=== PATIENT | female | born 1945 | race African-American/Black ===

== ENCOUNTER → 2017-06-28 | Outpatient (CLI) | payer OTHER ==
[~2017-06-28] VITALS: Ht 162.6 cm; Wt 122.5 kg
[~2017-06-28] MED LIST: ASPIR 8181 MG PO; CRESTOR40 MG PO; FENOFIBRATE160 MG PO; FOSAMAX5 MG; GLIPIZIDE ER2.5 MG; LISINOPRIL2.5 MG PO; LOSARTAN-HCTZ1 EAC2 PO; MOBIC15 MG PO; MOBIC7.5 MG PO; NORCO 5-325 TA1 EACH PO; NORVASC5 MG PO; PROTONIX40 M2; SIMVASTATIN5 MG; UNKNOWN BP MED; VITAMIN D5000 UNIT PO
--- NOTE | ~2017-06-28 | P ---
[facility] [place] [address] PROCEDURE REPORT Name: RAHEEMANA M Room #: REG [facility]#: [id number] Admission: 06/28/17 Attend Phys: Jt Humphreys MD Discharge: Date of : 47 Report #: [id number] THIS REPORT FOR: //name// CC: Jt Otero BRIEF HISTORY: The patient is a 72-year-old woman for average risk screening colonoscopy. Last colonoscopy is more than 10 years ago. PREOPERATIVE DIAGNOSIS: Average risk screening colonoscopy. POSTOPERATIVE DIAGNOSES: 1. A 5 mm rectal polyp. 2. Moderate sigmoid diverticulosis coli. MEDICATIONS: Deep sedation with propofol per anesthesia. SPECIMEN: Rectal polyp. ESTIMATED BLOOD LOSS: 3 mL. PROCEDURE: Colonoscopy to cecum and terminal ileum with biopsy. FINDINGS: Prior to propofol sedation, procedure of colonoscopy discussed with the patient as well as potential risks and its complications. She indicates she understands and desires to proceed. DESCRIPTION OF PROCEDURE: With the patient in left lateral decubitus position, digital examination was completed which revealed no abnormalities. Subsequently, the [employer] video colonoscope was introduced into the rectum and advanced under direct vision to the cecum. Done with minimal difficulty. The cecum was identified by the ileocecal valve and appendiceal orifice. I was able to visualize the distal segment of terminal ileum, which was inspected and noted to be unremarkable. At that point, scope was withdrawn and careful circumferential views obtained including retroflexion of the scope in the ascending colon. The scope was withdrawn. The mucosa was inspected. Mucosa was within normal limits. Normal vascular pattern and normal light reflex. The prep was good. As the scope was withdrawn, the mucosa was within normal limits, normal vascular pattern and normal light reflex. No abnormalities were noted until the sigmoid colon was reached at which point she was noted to have moderate diverticula without endoscopic evidence of diverticulitis. Scope was withdrawn in the rectum and no abnormalities were noted until the scope was retroflexed and a 5 mm sessile polyp was seen in the distal rectum just above the anal verge. No other abnormalities were seen. The polyp was removed with biopsy forceps. Scope was withdrawn. The patient tolerated the procedure well. [facility] [address] [place] [address] PROCEDURE REPORT Name: ANA MACIEL Room #: REG [facility]#: [id number] Admission: 06/28/17 Attend Phys: Jt Humphreys MD Discharge: Date of : 47 Report #: [id number] CONDITION OF THE PATIENT UPON DISCHARGE: Following procedure, the patient drowsy, aroused, conversant and will be discharged home when fully ambulatory. INSTRUCTIONS TO THE PATIENT AND FAMILY AT THE TIME OF DISCHARGE: One small polyp identified and removed as described above. We will follow up on the path and make further recommendations. If this is an adenoma, she should return in 5 years. If it is hyperplastic, then 10 years would be indicated. <ELECTRONICALLY SIGNED> By: Jt Humphreys MD 07/01/17 1712 1047 1443 Jt Humphreys MD /nt
--- NOTE | ~2017-06-28 | S ---
[facility] [address] [place] [address] SURGICAL PATH RPT PROCEDURE Name: ANA MACIEL Room #: REG [facility] M.R.#: [id number] Admission: 06/28/17 Date of : 47 Discharge: Report #: [id number] Path Case #: [id number] PATHOLOGY REPORT DRAFT COLLECTION DATE: 06/28/2017 RECEIVED DATE: 06/28/2017 SPECIMEN(S) RECEIVED: A.Rectal polyp bx
== END ==
LOC: GI 08:41
DX: Z12.11 Encounter for screening for malignant neoplasm of colon (principal); K62.1 Rectal polyp; K57.30 Diverticulosis of large intestine without perforation or abscess without bleeding; K21.9 Gastro-esophageal reflux disease without esophagitis; E11.9 Type 2 diabetes mellitus without complications; I10 Essential (primary) hypertension; E78.00 Pure hypercholesterolemia, unspecified; J45.909 Unspecified asthma, uncomplicated; M19.90 Unspecified osteoarthritis, unspecified site; E78.5 Hyperlipidemia, unspecified; F17.210 Nicotine dependence, cigarettes, uncomplicated; Z98.890 Other specified postprocedural states; Z86.73 Personal history of transient ischemic attack (TIA), and cerebral infarction without residual deficits; Z98.41 Cataract extraction status, right eye; Z98.42 Cataract extraction status, left eye; Z79.899 Other long term (current) drug therapy; Z88.8 Allergy status to other drugs, medicaments and biological substances
CPT/HCPCS: 62110; 62900

== ENCOUNTER → 2017-10-09 | Outpatient (CLI) | payer OTHER ==
--- NOTE | ~2017-10-09 | 2DMMODE ---
[facility] [place] [address] 2 D/M-MODE ECHOCARDIOGRAM Name: RAHEEMANA WYATT Room #: REG [facility].#: [id number] Admission: 10/09/17 Attend Phys: Momo Willard MD Discharge: Date of : 47 Date of Service: 10/09/17 1249 Report #: [id number] THIS REPORT FOR: //name// APPROVED REPORT Study performed: 10/09/2017 11:29:40 EXAM: Comprehensive 2D, Doppler, and color-flow Echocardiogram Patient Location: Out-Patient Status: routine BSA: 2.23 HR: 65 bpm BP: 140/86 mmHg Rhythm: NSR/PVCs Other Information Study Quality: Good Indications PVC's, pre-op knee replacement. Hx: HTN, HLP, DM, morbid obesity. 2D Dimensions RVDd: 36.70 mm LVEF(%): 49.40 (>50%) IVSd: 12.50 (7-11mm) LVOT Diam: 20.30 (18-24mm) LVDd: 52.92 mm PWd: 11.41 (7-11mm) Ascending Ao: 35.81 (22-36mm) LVDs: 39.58 (25-40mm) Aortic Root: 30.48 mm Ruiz's LVEF: 49.40 % Volumes Left Atrial Volume (Systole) Single Plane 4CH: 65.10 mL Single Plane 2CH: 83.02 mL LA ESV Index: 36.00 mL/m2 Aortic Valve AoV Peak Donald.: 1.40 m/s AO Peak Gr.: 7.79 mmHg LVOT Max P.23 mmHg LVOT Max V: 0.90 m/s RUDDY Vmax: 2.08 cm2 Mitral Valve E/A Ratio: 0.7 MV Decel. Time: 194.54 ms [facility] [place] [address] 2 D/M-MODE ECHOCARDIOGRAM Name: ANA MACIEL Room #: REG [facility]#: [id number] Admission: 10/09/17 Attend Phys: Momo Willard MD Discharge: Date of : 47 Date of Service: 10/09/17 1249 Report #: [id number] E Max Donald.: 0.77 m/s MV A Donald.: 1.18 m/s MV PHT: 56.42 ms IVRT: 119.95 ms Pulmonary Valve PV Peak Donald.: 0.92 m/s PV Peak Gr.: 3.40 mmHg Pulmonary Vein P Vein S: 0.52 m/s P Vein A: 0.25 m/s P Vein D: 0.38 m/s P Vein A Dur.: 133.8 msec P Vein S/D Ratio: 1.37 Tricuspid Valve TR Peak Donald.: 3.45 m/s RAP Estimate: 5.00 mmHg TR Peak Gr.: 47.51 mmHg PA Pressure: 53.00 mmHg Left Ventricle The left ventricle is normal size. There is normal LV segmental wall motion. Mild concentric left ventricular hypertrophy. Left ventricular systolic function is low normal. LVEF is 50%. Mild diastolic dysfunction is present (impaired relaxation pattern). Right Ventricle The right ventricle is normal size. The right ventricular systolic function is normal. Atria Left atrium is mildly dilated. The right atrium size is normal. Aortic Valve The aortic valve is normal in structure. No aortic regurgitation is present. There is no aortic valvular stenosis. Mitral Valve The mitral valve is normal in structure. Mild mitral regurgitation. No evidence of mitral valve stenosis. Tricuspid Valve The tricuspid valve is normal in structure. Mild tricuspid regurgitation. estimated pa pressure 50 mm Hg Pulmonic Valve [facility] [address] [place] [address] 2 D/M-MODE ECHOCARDIOGRAM Name: ANA MACIEL Room #: REG CL [facility]#: [id number] Admission: 10/09/17 Attend Phys: Momo Willard MD Discharge: Date of : 47 Date of Service: 10/09/17 1249 Report #: [id number] The pulmonary valve is normal in structure. Trace pulmonic regurgitation. Great Vessels The aortic root is normal in size. The ascending aorta is normal in size. IVC is normal in size and collapses >50% with inspiration. Pericardium There is no pericardial effusion. <Conclusion> Mild concentric left ventricular hypertrophy. LVEF is 50%. Left atrium is mildly dilated. Mild tricuspid regurgitation. estimated pa pressure 50 mm Hg <ELECTRONICALLY SIGNED> By: Momo Willard MD, FACC 10/09/17 1249 1249 1249 Momo Willard MD, FACC /INF
== END ==
LOC: CV 06:32
DX: I08.1 Rheumatic disorders of both mitral and tricuspid valves (principal); I10 Essential (primary) hypertension; E11.9 Type 2 diabetes mellitus without complications; E78.5 Hyperlipidemia, unspecified; E66.01 Morbid (severe) obesity due to excess calories; Z96.651 Presence of right artificial knee joint

== ENCOUNTER 2018-06-19 13:02 | Inpatient (IN) | payer OTHER ==
[~2018-06-19] VITALS: Ht 162.6 cm; Wt 123.4 kg
--- NOTE | ~2018-06-19 | HC ---
[facility] [place] [address] CONSULTATION Name: ANA MACIEL Room #: 464-P ADM IN M.R.#: [id number] Admission: 06/19/18 ������������������ Attend Phys: Bassem Taylor Discharge: ������������������ Date of : 47 Report #: [id number] THIS REPORT FOR: //name// CC: Bassem Otero DATE OF SERVICE: 06/20/2018 REQUESTING PHYSICIAN: Dr. Fermin. PRIMARY CARE PHYSICIAN: Dr. Otero. PRIMARY BEAUTY CULTURIST APPRENTICE: Dr. Momo Willard. REASON FOR CONSULTATION: Syncope. HISTORY OF PRESENT ILLNESS: The patient is a 73-year-old female with a history of high blood pressure. She got up yesterday morning and fell down. She was basically getting out of bed when it happened and she transiently lost consciousness. She has a history of PVCs, but did not feel palpitations. She went to the emergency room and was in the sinus rhythm. Overnight on telemetry, she has had a sinus rhythm with intermittent PVCs and rare, less than 5-beat runs of a nonsustained ventricular tachycardia without symptoms. Vital signs have been stable. She denies chest pain, pressure, shortness of breath. She had recent knee surgery. She had been sick with the flu over the last 1-2 weeks and thinks she might not have been eating very well. She denies headaches, blurry vision, symptoms of numbness, weakness or slurred speech. PAST MEDICAL HISTORY: Hypertension and hyperlipidemia. She had a normal heart catheterization. She has had eye surgery; type 2 diabetes mellitus, diet controlled; hyperlipidemia. HOME MEDICATIONS: Include amlodipine 5 mg daily, meloxicam, Crestor 40 mg daily, losartan/HCTZ 100 mg and fenofibrate. ALLERGIES: SHE HAS ALLERGIES TO LISINOPRIL AND FLAGYL. SOCIAL HISTORY: She is a smoker. [facility] [address] [place] [address] CONSULTATION Name: ANA MACIEL Room #: 464-P [facility] [place] ..#: [id number] Admission: 06/19/18 ������������������ Attend Phys: Bassem Taylor Discharge: ������������������ Date of : 47 Report #: [id number] REVIEW OF SYSTEMS: GENERAL: Positive fevers and chills recently. HEENT: Eyes: Denies any blurred vision or loss of vision. Throat: Denies dysphagia. CARDIOVASCULAR: No chest pain, no orthopnea, no PND, no dyspnea with exertion. MUSCULOSKELETAL: Positive knee surgery recently, has knee pain. Walks with a cane. NEUROLOGIC: As noted above. SKIN: No rashes. GASTROINTESTINAL: No active fevers or chills. OBJECTIVE: VITAL SIGNS: This morning her blood pressure is 152/63 and her blood pressure first thing this morning was 77/41. She is in sinus rhythm. GENERAL: This is an obese elderly -[place]cu[place] female. HEENT: Unremarkable. There is no facial trauma. EOMs intact. No exophthalmus. NECK: Supple, no jugular venous distention. CARDIOVASCULAR: Regular. I could not hear a murmur or S3. LUNGS: Clear to auscultation bilaterally. EXTREMITIES: There is no peripheral edema. Carotid Dopplers show fbyy-do-dmcwwzrt plaquing with a 40-60% stenosis at its origin on the left and mild plaquing in the right. Transthoracic echocardiogram last year showed EF 50%, mild concentric left ventricular hypertrophy, mild pulmonary hypertension. IMPRESSION: 1. Syncope. 2. Premature ventricular contractions. 3. Hypertension. 4. Low blood pressures. PLAN: At this point in time, I think she might have become dehydrated and overmedicated in regards to her hypertension medicines and may have some mild orthostasis with the possibility of this being a ventricular arrhythmia. I would like to arrange for a 30-day cardiac monitoring. I would discontinue the thiazide diuretic medication and perhaps decrease the dose of her losartan as well. ��������������������������������������������� ���������������������������������������� By: ��������������������������������������������� 0828 2328 Sterling Nava MD, FACC /nt
[2018-06-19 13:03] VITALS: BP 143/61
[2018-06-19 13:52] LABS: ABSOLUTE NEUTROPHILS 1.5 thou/uL (1.4-8.2); BASOPHILS 0.2 % (0.0-2.0); EOSINOPHILS 10.1 % (0.0-3.0); HEMATOCRIT 41.6 % (37.0-47.0); HEMOGLOBIN 14.1 gm/dL (12.0-15.0); LYMPHOCYTES 43.1 % (24.0-44.0); MCH 29.6 pg (26.0-34.0); MCHC 33.8 g/dL (28.0-37.0); MCV 87.6 fL (80.0-100.0); MONOCYTES 8.9 % (1.0-8.0); PLATELET COUNT 260 thou/uL (150-400); POLYS 37.7 % (36.0-66.0); RBC 4.75 mil/uL (4.20-5.00); RDW 13.7 % (10.5-14.5)
[2018-06-19 14:02] LABS: ANION GAP 8 mmol/L (7-16); BUN 11 mg/dL (7-18); CALCIUM 9.7 mg/dL (8.5-10.1); CHLORIDE 103 mmol/L (98-107); CO2 32 mmol/L (21-32); CREATININE 0.6 mg/dL (0.6-1.0); GLUCOSE 109 mg/dL (74-106); POTASSIUM 4.1 mmol/L (3.5-5.1); SODIUM 143 mmol/L (136-145)
[2018-06-19 14:11] LABS: TROPONIN-I <0.06 ng/mL (<0.06)
[2018-06-19 19:08] VITALS: BP 178/76
[2018-06-19 19:24] VITALS: BP 132/78
[2018-06-19 19:55] VITALS: BP 151/54
[2018-06-20] VITALS (7 sets, daily range): BP systolic 77–182; BP diastolic 41–79
--- NOTE | 2018-06-20 04:40 | NUR ---
Pt. rested quietly at intervals during the night when checked on during frequent rounds. She c/o a headache and was given jpo tylenol (see emar) with some relief noted. Bed alarm is on.
[2018-06-20 04:45] LABS: HEMATOCRIT 38.5 % (37.0-47.0); HEMOGLOBIN 12.8 gm/dL (12.0-15.0); MCH 29.4 pg (26.0-34.0); MCHC 33.1 g/dL (28.0-37.0); MCV 88.8 fL (80.0-100.0); RBC 4.34 mil/uL (4.20-5.00); RDW 13.7 % (10.5-14.5); WBC 4.2 thou/uL (4.0-11.0)
[2018-06-20 05:01] LABS: MAGNESIUM 1.7 mg/dL (1.8-2.4); PHOSPHORUS 4.5 mg/dL (2.5-4.9); TROPONIN-I <0.06 ng/mL (<0.06)
[2018-06-20 05:02] LABS: ALBUMIN 3.2 g/dL (3.4-5.0); CALCIUM 9.3 mg/dL (8.5-10.1); CREATININE 0.5 mg/dL (0.6-1.0); POTASSIUM 3.8 mmol/L (3.5-5.1); TOTAL BILIRUBIN 0.4 mg/dL (<0.1-1.0); TOTAL PROTEIN 6.3 g/dL (6.4-8.2)
--- NOTE | 2018-06-20 12:10 | 2DMMODE ---
[address] [address] 2 D/M-MODE ECHOCARDIOGRAM Name: ANA MACIEL Room #: 464-P ADM IN M.R.#: [id number] ������������� Admission: 06/19/18 ������������� Attend Phys: Bassem Escalona Discharge: ��� ������������� ��� Date of : 47 Date of Service: 06/20/18 1210 �� Report #: [id number] �������� ��������������������������������������������[id number] THIS REPORT FOR: //name// APPROVED REPORT Study performed: 06/20/2018 09:38:17 EXAM: Comprehensive 2D, Doppler, and color-flow Echocardiogram Patient Location: Bedside Room #: 464 Status: routine BSA: 2.23 HR: 87 bpm BP: 151/53 mmHg Other Information Study Quality: Adequate Indications Arrhythmia Syncope Left Ventricle The left ventricle is normal size. There is normal LV segmental wall motion. Mild concentric left ventricular hypertrophy. The left ventricular systolic function is normal. The left ventricular ejection fraction is within the normal range. LVEF is 50-55%. Right Ventricle The right ventricle is normal size. The right ventricular systolic function is normal. Atria Left atrium is dilated. The right atrium size is normal. Aortic Valve The aortic valve is normal in structure. Mitral Valve The mitral valve is normal in structure. Tricuspid Valve The tricuspid valve is normal in structure. Pulmonic Valve [address] [place] [address] 2 D/M-MODE ECHOCARDIOGRAM Name: ANA MACIEL Room #: 464-P ADM IN M.R.#: [id number] ������������� Admission: 06/19/18 ������������� Attend Phys: Bassem Escalona Discharge: ��� ������������� ��� Date of : 47 Date of Service: 06/20/18 1210 �� Report #: [id number] �������� ��������������������������������������������[id number] The pulmonary valve is normal in structure. Great Vessels The aortic root is normal in size. IVC is normal in size and collapses >50% with inspiration. Pericardium There is no pericardial effusion. <Conclusion> LVEF is 50-55%. Mild concentric left ventricular hypertrophy. There is normal LV segmental wall motion. The right ventricle is normal size. Left atrium is dilated. The aortic valve is normal in structure. The mitral valve is normal in structure. ��������������������������������������������� <ELECTRONICALLY SIGNED> ���������������������������������������� By: Sterling Nava MD, FACC ��������������������������������������������� 06/20/180 09 09 Sterling Nava MD, FACC /INF
--- NOTE | 2018-06-20 15:32 | NUR ---
PT ADMITTED RELATED TO [facility]NCOPE. CM REVIEWED CHART AND SPOKE WITH CARE TEAM. CM MET WITH PT AT BEDSIDE THIS DAY. PT IS A&O X4. CM ROLE INTRODUCED. PT INDICATED SHE LIVES IN A HOUSE WITH HER DTR WITH 3 STEPS TO ENTER AND A FULL FLIGHT OF STEPS TO MAIN LEVEL BUT SHE ALSO HAS A STAIR GLIDE. PT INDICATED SHE HAS A CANE AND A FWW FOR USE UPON DC. PT INDICATED SHE HAD USED [facility] IN THE PAST AND SHE WOULD LIKE TO USE THEM AGAIN UPON DC IF NEEDED. CM TO FOLLOW INDICATED WITH DC PLANNING.
--- NOTE | 2018-06-20 15:50 | NUR ---
IF PT IS TO DC OVER THE WEEKEND AND NEED HOME HEALTH PLEASE FAX ORDERS TO [facility] . PT HAS ALL RECOMMENDED DME.
--- NOTE | 2018-06-20 16:01 | NUR ---
DISCHARGE PLANNING. ANTICIPATED DISCHARGE TO HOME TOMORROW. HOME HEALTH RECOMMENDED AT DISCHARGE. PATIENT REQUEST REFERRAL FAXED TO [facility]. REFERRAL FAXED TO [facility]. CALL PLACED TO [facility] TO NOTIFY. [facility] STATES UPON ACCEPTANCE, PATIENT WILL NOT BE HAVE FIRST HOME HEALTH VISIT UNTIL SATURDAY OR SATURDAY OF NEXT WEEK DUE TO PATIENT CENSUS. UNIT SW NOTIFIED. FOLLOWING TO ASSIST WITH DISCHARGE NEEDS.
--- NOTE | 2018-06-20 16:19 | NUR ---
Received awake on bed, alert and oriented. Assisted in ambulating, with cane, on falls protocol. Blood pressure of 77/41 for 8am noted, rechecked: 151/54 (sitting on chair). Doctor Brandon informed, Blood pressure rechecked, 120/70 (lying down). Sayra had ECHO done today. Seen by OT/PT.
[2018-06-21 02:52] VITALS: BP 158/96
--- NOTE | 2018-06-21 04:50 | NUR ---
Pt. rested quietly at intervals during the night when checked on during frequent rounds. She still c/o some dizziness and po antivert given with no relief. Assisted to the bathroom. Bed alarm is on.
[2018-06-21 08:00] VITALS: BP 151/79
[2018-06-21 09:57] VITALS: BP 151/79
[2018-06-21] MEDS ORDERED: COZAAR 50 MG TA50 M1 PO (10:28)
[2018-06-21] MEDS ORDERED: AMLODIPINE BESY10 MG PO (10:28)
--- NOTE | 2018-06-21 13:26 | NUR ---
Received patient awake on bed. Vital signs stable. Assisted in ambulating to the toilet, with cane. Patient complained that she feels lethargic after taking Meclizine, complained of pain at right upper abdomen- Dr. Taylor informed and seen the patient. Patient for discharge today, IV and telemetry leads removed, health teaching given, home medications and follow up schedule given to the patient. Wheeled down to the [facility], patient went home with daughter via personal car.
--- NOTE | 2018-06-21 18:22 | EKG ---
[address] [place] [address] ELECTROCARDIOGRAM REPORT Name: ANA MACIEL Room #: 464-P [facility] IN M.R.#: [id number] ������������������ Admission: 06/19/18 ������������������ Attend Phys: Bassme Taylor Discharge: 06/21/18 ������������������ Date of : 47 Report #: [id number] ����������������������������������������������������������������� [id number] THIS REPORT FOR: //name// [facility] ED Test Date: 2018-06-19 Test Time: 13:42:29 Pat Name: ANA MACIEL Department: Room: [facility] Gender: F Mold Injector: WG : 1945 Requested By: Sreekanth Gallego Order Number: [id number] MD: Amarjit Merrill Measurements Intervals [place] Rate: 87 P: 34 DC: 194 QRS: -13 QRSD: 90 T: 32 QT: 361 QTc: 435 Interpretive Statements Sinus tachycardia Ventricular trigeminy frequent PVCs Left atrial enlargement Low voltage, precordial leads Nonspecific ST-T wave changes Compared to ECG 10/09/2011 21:49:10 Low QRS voltage now present Electronically Signed On 06-21-2018 18:22:03 CDT by Amarjit Merrill [email or web address] ��������������������������������������������� <ELECTRONICALLY SIGNED> ���������������������������������������� By: Amarjit Merrill MD ��������������������������������������������� 06/21/18 1822 1342 134 Amarjit Merrill MD /EPI
--- NOTE | 2018-06-24 10:16 | NUR ---
Donna from [facility] called to see if patient had discharged yet. Patient is to have [facility]. DP called Donna at [facility] and left message that patient dc this past Saturday06/21/18 and if they did not receive dc paperwork to please call dp back and dp will send paperwork on patient.
== END 2018-06-21 13:46 | disposition home health service (06) | DRG 316 ==
LOC: ER 13:02 → EROBS 18:20 → 4W 18:20
PROVIDERS: Nurse Practitioner; ADMIT Hospitalist
DX: I95.9 Hypotension, unspecified (principal); E86.9 Volume depletion, unspecified; R55 Syncope and collapse; I10 Essential (primary) hypertension; E78.5 Hyperlipidemia, unspecified; E11.9 Type 2 diabetes mellitus without complications; I65.23 Occlusion and stenosis of bilateral carotid arteries; I49.3 Ventricular premature depolarization; S00.93XA Contusion of unspecified part of head, initial encounter; W18.39XA Other fall on same level, initial encounter; E86.0 Dehydration; K21.9 Gastro-esophageal reflux disease without esophagitis; M19.90 Unspecified osteoarthritis, unspecified site; J45.909 Unspecified asthma, uncomplicated; Z98.51 Tubal ligation status; Z86.73 Personal history of transient ischemic attack (TIA), and cerebral infarction without residual deficits; Z88.8 Allergy status to other drugs, medicaments and biological substances; Y93.89 Activity, other specified; Y92.89 Other specified places as the place of occurrence of the external cause; Y99.8 Other external cause status
CPT/HCPCS: 10045

== ENCOUNTER 2020-07-12 16:18 | Inpatient (IN) | payer OTHER ==
[~2020-07-12] VITALS: Ht 162.6 cm; Wt 121.2 kg
[~2020-07-12 16:18] MED LIST changes: +AMLODIPINE BESY10 MG PO; +COZAAR 50 MG TA50 M1 PO
[2020-07-12 16:24] VITALS: BP 190/101
[2020-07-12 16:44] LABS: ABSOLUTE NEUTROPHILS 2.4 thou/uL (1.4-8.2); BASOPHILS 1.7 % (0.0-2.0); EOSINOPHILS 6.8 % (0.0-3.0); HEMOGLOBIN 14.5 gm/dL (12.0-15.0); LYMPHOCYTES 31.3 % (24.0-44.0); MCH 30.9 pg (26.0-34.0); MCHC 34.5 g/dL (28.0-37.0); MCV 89.7 fL (80.0-100.0); PLATELET COUNT 247 thou/uL (150-400); POLYS 52.2 % (36.0-66.0); RBC 4.68 mil/uL (4.20-5.00); RDW 13.9 % (10.5-14.5); WBC 4.6 thou/uL (4.0-11.0)
[2020-07-12] MEDS ORDERED: REPATHA SU140 MG/1 M INJECTION (16:53)
[2020-07-12 16:54] LABS: ANION GAP 3 mmol/L (7-16); BUN 8 mg/dL (7-18); CALCIUM 9.3 mg/dL (8.5-10.1); CHLORIDE 103 mmol/L (98-107); CO2 33 mmol/L (21-32); CREATININE 0.7 mg/dL (0.6-1.0); GLUCOSE 120 mg/dL (74-106); POTASSIUM 3.7 mmol/L (3.5-5.1); SODIUM 139 mmol/L (136-145)
[2020-07-12 17:01] LABS: APTT 27.1 Seconds (24.5-32.8); INR 1.04; PROTIME 11.3 Seconds (10.5-12.1)
[2020-07-12 17:04] LABS: SGOT 15 U/L (15-37); SGPT 14 U/L (14-59); TOTAL BILIRUBIN 0.6 mg/dL (0.2-1.0); TROPONIN-I <0.06 ng/mL (<0.06)
--- NOTE | 2020-07-12 18:35 | NUR ---
VAT CONSULTED FOR A PIV FOR A PERFUSION STUDY FOR A POSS CVA. PIV UNABLE TO THREAD DUE TO DEEP VESSELS, ML PLACED.
[2020-07-12 20:34] VITALS: BP 146/83
[2020-07-12 21:09] VITALS: BP 197/79
[2020-07-12 21:35] VITALS: BP 195/94
[2020-07-12] MEDS ORDERED: ASA81BEC PO (22:14)
[2020-07-12 23:42] VITALS: BP 183/68
[2020-07-13 04:03] VITALS: BP 140/57
--- NOTE | 2020-07-13 04:38 | NUR ---
Arrived from ER around 2119. SUBSTATION TECHNICIAN came to see pt. Received a call from Dr. Patterson and order received. Numbness and tingling on left side of face stating it feels funny. Drip on left leg initially then later on none. Pt. stated it may have something to do with her left knee surgery. Equal family practice nurse practitioner on both hands. MRI check list completed and faxed to department. IV fluids infusing and will DC once current bag completed per order. Tylenol given for mild headache with good relief. SCD's in place. Bed alarm on.
[2020-07-13 05:44] LABS: ANION GAP 6 mmol/L (7-16); BUN 8 mg/dL (7-18); CALCIUM 8.7 mg/dL (8.5-10.1); CHLORIDE 106 mmol/L (98-107); CHOLESTEROL 166 mg/dL (<200); CO2 31 mmol/L (21-32); CREATININE 0.6 mg/dL (0.6-1.0); GLUCOSE 105 mg/dL (74-106); HDL CHOLESTEROL 57 mg/dL (>40); LDL CHOLESTEROL 86 mg/dL (<100); POTASSIUM 3.4 mmol/L (3.5-5.1); SODIUM 143 mmol/L (136-145); TC:HDL 2.9 Ratio (Not establshd); TRIGLYCERIDE 119 mg/dL (<150); VLDL 24 mg/dL (<40)
[2020-07-13 06:13] LABS: SERUM ASSESSMENT Clear
[2020-07-13 07:38] VITALS: BP 144/58
--- NOTE | 2020-07-13 09:09 | EKG ---
[place] [address] [facility] [place] [address] ELECTROCARDIOGRAM REPORT Name: ANA MACIEL Room #: 354-P ADM IN M.R.#: [id number] Admission: 07/12/20 Attend Phys: Kai Willard MD Discharge: Date of : 47 Report #: [id number] [facility] ED Test Date: 2020-07-12 Test Time: 17:20:44 Pat Name: ANA MACIEL Department: Room: 354 Gender: F Fisher Terrapin: : 1945 Requested By: Nirmal Sanchez Order Number: [id number] MD: Neto Jefferson Measurements Intervals [place] Rate: 95 P: 48 WI: 166 QRS: -15 QRSD: 93 T: 41 QT: 373 QTc: 469 Interpretive Statements Sinus rhythm Ventricular bigeminy Inferior infarct, old Compared to ECG 06/19/2018 13:42:2 Sinus tachycardia no longer present Electronically Signed On 07-13-2020 9:09:01 CDT by Neto Jefferson [email or web address] <ELECTRONICALLY SIGNED> By: Neto Jefferson MD, [facility] 07/13/20 0909 1720 1720 Neto Jefferson MD, [facility] /EPI
--- NOTE | 2020-07-13 09:52 | NUR ---
pt care assumed at 0700, pt alert and oriented x4, denies any pain. complains numbness and tingling on the left side of face and body. NIH scale completed per order. pt on room air. no signs of distress noted. up with 1 assist. up in the chair. fall precautions in place. will continue to monitor.
--- NOTE | 2020-07-13 11:17 | 2DMMODE ---
[facility] [place] [address] 2 D/M-MODE ECHOCARDIOGRAM Name: ANA MACIEL Room #: 354-P ADM IN M.R.#: [id number] Admission: 07/12/20 Attend Phys: Kai Willard MD Discharge: Date of : 47 Report #: [id number] THIS REPORT FOR: cc: Lyndsay Otero MD, Suzanne MD Park, Jin S. MD ~ APPROVED REPORT Study performed: 07/13/2020 10:27:22 EXAM: Comprehensive 2D, Doppler, and color-flow Echocardiogram Patient Location: Bedside Room #: 354 Status: routine BSA: 2.21 HR: 80 bpm BP: 144/58 mmHg Rhythm: NSR Other Information Study Quality: Good Indications Dyspnea on exertion. Hx: CVA, HTN, HLP, DM. 2D Dimensions RVDd: 40.14 mm IVSd: 13.00 (7-11mm) LVDd: 50.39 mm PWd: 13.00 (7-11mm) Ascending Ao: 36.62 (22-36mm) LVDs: 30.96 (25-40mm) Left Atrium: 45.83 (27-40mm) Aortic Root: 30.57 mm Volumes Left Atrial Volume (Systole) Single Plane 4CH: 61.89 mL Single Plane 2CH: 48.13 mL LA ESV Index: 26.00 mL/m2 Aortic Valve AoV Peak Donald.: 1.55 m/s AO Peak Gr.: 9.60 mmHg LVOT Max P.20 mmHg LVOT Max V: 1.24 m/s [facility] [address] [place] [address] 2 D/M-MODE ECHOCARDIOGRAM Name: ANA MACIEL Room #: 354-P [facility].#: [id number] Admission: 07/12/20 Attend Phys: Kai Willard MD Discharge: Date of : 47 Report #: [id number] Mitral Valve E/A Ratio: 0.8 MV Decel. Time: 187.59 ms MV E Max Donald.: 1.02 m/s MV A Donald.: 1.33 m/s MV PHT: 54.40 ms IVRT: 93.43 ms Pulmonary Valve PV Peak Donald.: 1.08 m/s PV Peak Gr.: 4.64 mmHg Tricuspid Valve TR Peak Donald.: 2.92 m/s RAP Estimate: 5.00 mmHg TR Peak Gr.: 34.12 mmHg PA Pressure: 39.00 mmHg Left Ventricle The left ventricle is normal size. There is normal LV segmental wall motion. Mild concentric left ventricular hypertrophy. Left ventricular systolic function is normal. LVEF is 60-65%. Mild diastolic dysfunction is present (impaired relaxation pattern). Right Ventricle The right ventricle is normal size. The right ventricular systolic function is normal. Atria The left atrium size is normal. The right atrium size is normal. Aortic Valve The aortic valve is normal in structure. No aortic regurgitation is present. There is no aortic valvular stenosis. Mitral Valve The mitral valve is normal in structure. Mild mitral annular calcification. Trace mitral regurgitation. Tricuspid Valve The tricuspid valve is normal in structure. Trace tricuspid regurgitation. Estimated PAP is 40mmHg. Pulmonic Valve The pulmonary valve is normal in structure. Trace pulmonic [facility] [place] [address] 2 D/M-MODE ECHOCARDIOGRAM Name: ANA MACIEL Room #: 354-P ADM IN M.R.#: [id number] Admission: 07/12/20 Attend Phys: Kai Willard MD Discharge: Date of : 47 Report #: [id number] regurgitation. Great Vessels The aortic root is normal in size. The ascending aorta is normal in size. IVC is normal in size and collapses >50% with inspiration. Pericardium There is no pericardial effusion. <Conclusion> The left ventricle is normal size. Mild concentric left ventricular hypertrophy. Left ventricular systolic function is normal. Mild diastolic dysfunction is present (impaired relaxation pattern). The right ventricle is normal size. The left atrium size is normal. The aortic valve is normal in structure. Trace mitral regurgitation. Trace tricuspid regurgitation. Estimated PAP is 40mmHg. <ELECTRONICALLY SIGNED> By: Edward Cochran MD [id number] 16 Edward Cochran MD /WES
[2020-07-13 11:28] VITALS: BP 141/62
--- NOTE | 2020-07-13 14:34 | NUR ---
Nutrition: pt admitted with left sided weakness, numbness, tingling, possible CVA. MRI today. Consult received, no reason stated. PMH: DM, HTN, HLD, CVA, TIAs. ST evaled and placed pt on mech altered chopped diet due to mild/moderate dysphagia, glucerna daily. Pt voiced concern about being able to chew meat. Can change supplement to ensure max for less calories/increased protein. A1C pending. Normal appetite prior to admit, stable weights. BMI 45.9, extreme class 3 obesity. Would recommend if pt eating > 50% of meals, add Heart healthy to diet order. Otherwise, place as low nutrition risk.
--- NOTE | 2020-07-13 15:12 | NUR ---
INITIAL ASSESSMENT: Received consult for discharge planning. MAXINE reviewed chart and spoke with nursing and attending physician. Pt was admitted from home due to left sided weakness. Neuro consulted due to possible TIA. MAXINE met with pt, dtr (Hansa) and granddtr (Katelyn) at bedside. Introduced role of SW. Pt is alert/orientated x 4. Pt reports she lives at home alone. Prior to admission, pt was independent with ADLs. Pt has a cane and walker to use as needed. Pt has a stair glide in place. Pt has been to [facility] in the past and has used [facility]. Pt's PCP is Dr. Lyndsay Otero. Pt states that she feels she will need additional care in her home. SW explained HH services v. in-home private duty services. Pt states that her was a and had [facility]. Pt has as her secondary insurance. MAXINE left voice message for Mickey at the [facility] (ext. [phone]) to determine if pt has any in home benefits. Pt is agreeable with HH services or post-acute placement if recommended. MAXINE is following to assist as needed with discharge planning.
[2020-07-13 16:34] VITALS: BP 148/95
[2020-07-13 20:10] VITALS: BP 156/65
--- NOTE | 2020-07-13 22:03 | NUR ---
PT VERY CHEERFUL AND TALKATIVE. NIH COMPLETED. LLE DRIFT, R EYE WHEN PT TRIES TO BLINK THE L EYE CLOSES. FACIAL DROOP R SIDE. L SIDE FACE TINGLING. PRN FOR HEADACHE PROVIDED AND HS SNACK. PT INDEP AND STEADY TO BSC. PT HAS CANE AT BEDSIDE. PT REPORTED R EYE DRY AND PROVIDED SALINE SYRINGE FOR MOSITURE. PT TALKING ON PHONE, PT DISCUSSED POSSIBLE DC IN AM.
--- NOTE | 2020-07-13 22:49 | NUR ---
PROVIDER FORENSIC SCIENCE TECHNICIAN UPDATED RE PTS C/O SOMETHING IN HER R EYE AND THAT PT HAS BEEN PROVIDED FLUSHES.
[2020-07-14 01:06] LABS: GLYCOHEMOGLOBIN (HGB A1C) 5.8 % (4.8-5.6)
[2020-07-14 04:23] VITALS: BP 164/71
--- NOTE | 2020-07-14 05:32 | NUR ---
PT REPORTED TINGLING IN L SIDE OF FACE IMPROVED.
[2020-07-14 06:04] LABS: CALCIUM 9.3 mg/dL (8.5-10.1); CREATININE 0.6 mg/dL (0.6-1.0); MAGNESIUM 1.9 mg/dL (1.8-2.4); POTASSIUM 4.5 mmol/L (3.5-5.1)
[2020-07-14 07:46] VITALS: BP 155/68
[2020-07-14 11:16] VITALS: BP 178/85
[2020-07-14] MEDS ORDERED: ACETAMINOPHEN325 M1 PO (12:17)
[2020-07-14] MEDS ORDERED: ARTIFICIAL TEA1 EACH OPHTHALMIC (12:17)
[2020-07-14] MEDS ORDERED: ACYCLOVIR 400400 MG PO (12:17)
[2020-07-14] MEDS ORDERED: MIRALAX17 GM PO (12:17)
[2020-07-14] MEDS ORDERED: LIPITOR 20 MG T20 M1 PO (12:17)
[2020-07-14] MEDS ORDERED: MEDROL DOSPAK21 TA1 PO (12:17)
[2020-07-14 13:59] VITALS: BP 178/85
[2020-07-14 14:18] VITALS: BP 178/85
--- NOTE | 2020-07-14 15:07 | NUR ---
DISCHARGE NOTE: MAXINE reviewed chart and spoke with nursing and attending physician. Pt is medically stable to discharge home with HH today. 5N consulted. Pt is too high level for inpt acute rehab. MAXINE received call back from Latonia at the [facility], stating that pt will need to call the [employer] to determine if she is eligible for any in-home services through the [facility]. MAXINE met with pt at bedside to discuss discharge plan. Pt is needing a rollator walker. No preference voiced of DME agency. SW notified [facility] liaison, who will deliver a walker prior to pt's discharge. Script obtained from attending physician and provided to [facility] liaison. Provided pt with list of HH providers, [facility] and number for the [employer]. Pt requests referral to be sent to [facility] . MAXINE verified pt's home address and phone number. MAXINE faxed referral to [facility] and notified liaison, who states they are able to accept pt on service. [facility] will assist pt with contacting the [facility]. Start of care for HH is planned for tomorrow. Contact info for HH and [facility] placed in pt's discharge summary. Pt drove herself to the hospital. Pt or family will provide transportation home. No additional SW needs identified at this time, but is available to assist should needs arise.
[2020-07-14 15:52] VITALS: BP 175/98
--- NOTE | 2020-07-28 17:58 | HC ---
[facility] [place] [address] CONSULTATION Name: ANA MACIEL Room #: 354-P [facility] IN M.R.#: [id number] Admission: 07/12/20 Attend Phys: Kai Willard MD Discharge: 07/14/20 Date of : 47 Report #: [id number] THIS REPORT FOR: cc: Lyndsay Otero MD, Suzanne MD Khosla,Lobo Rodriguez MD ~ DOC #: [id number] Lobo Patterson MD DATE OF SERVICE: 07/13/2020 HISTORY OF PRESENT ILLNESS: This is a 75-year-old female patient who was evaluated by me for the possibility of a stroke. The patient was discussed with the emergency room provider yesterday twice. The patient according to them has presented with some left-sided tingling and numbness and facial droop. That is all the symptom she has. To me, it looks like she has a facial palsy on the right side. She gives a history that she had similar symptoms several years ago and they were not sure whether she had a Watts's palsy or a stroke. REVIEW OF SYSTEMS: Positive for hypertension, hyperlipidemia, diet-controlled diabetes, strokes somewhere in 1990s, but according to her, they were not sure whether a stroke or viral meningitis. She has a history of asthma, autoimmune problems, heart skips a beat. She had a LASIK surgery. That was a relevant 14-point review of systems. PAST MEDICAL HISTORY: Positive for stroke versus Watts's palsy. FAMILY HISTORY: Unremarkable. SOCIAL HISTORY: She smokes, but does not drink alcohol. PHYSICAL EXAMINATION: The patient's examination indicates she is alert, she is responsive, she is able to follow simple and complex command. Her speech does not appear to be affected. Cranial nerve examination: On my examination, she has a right facial palsy. I could not tell very well about the visual field evaluation. She has some weakness, but that is her baseline according to her and she walks with a cane. There is no meningeal sign. Cardiac examination is unremarkable. Blood pressure is 148/95, respirations 17, pulse 66, temperature 98.6. LABORATORY DATA: White count is 4.6. Cardiac examination is unremarkable. No respiratory difficulty was noticed. Pulses are somewhat difficult to feel. She had multiple studies, which were reviewed. She had a CT angiogram, which was mostly unremarkable. MRI of the head showed no acute changes. MRI is unremarkable. IMPRESSION: The patient's clinical presentation is more suggestive of Watts's [address] [address] CONSULTATION Name: ANA MACIEL Room #: 354-P [facility] IN M.R.#: [id number] Admission: 07/12/20 Attend Phys: Kai Willard MD Discharge: 07/14/20 Date of : 47 Report #: [id number] palsy. It is unlikely to be stroke. She will need physical therapy, occupational therapy. I discussed steroids with her and she would like to be on prednisone and I think giving her a Medrol David should be adequate. She needs to protect her eyes. 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 Thank you very much for this referral. The patient was discussed with Dr. Ibanez. MD NAMAN Nguyen/LIZZIE <ELECTRONICALLY SIGNED> By: Lobo Patterson MD 07/28/20 1758 [id number] Lobo Patterson MD /nhi
== END 2020-07-14 19:00 | disposition home health service (06) | DRG 74 ==
LOC: ER 16:18 → EROBS 19:57 → 3W 19:57
PROVIDERS: Emergency Medicine; Internal Medicine; Nurse Practitioner Family; ADMIT Hospitalist; ATTEND Hospitalist
PROC: 05HB33Z Insertion of Infusion Device into Right Basilic Vein, Percutaneous Approach (ICD-10-PCS; principal; 2020-07-13)
DX: G51.0 Bell's palsy (principal); I69.354 Hemiplegia and hemiparesis following cerebral infarction affecting left non-dominant side; Z68.42 Body mass index [BMI] 45.0-49.9, adult; I10 Essential (primary) hypertension; E78.5 Hyperlipidemia, unspecified; M19.90 Unspecified osteoarthritis, unspecified site; K21.9 Gastro-esophageal reflux disease without esophagitis; J45.909 Unspecified asthma, uncomplicated; E11.9 Type 2 diabetes mellitus without complications; E66.01 Morbid (severe) obesity due to excess calories; Z98.42 Cataract extraction status, left eye; Z98.41 Cataract extraction status, right eye; Z88.8 Allergy status to other drugs, medicaments and biological substances
CPT/HCPCS: 10879; 27000

== ENCOUNTER 2021-04-10 11:02 | Emergency (ER) | payer OTHER ==
[~2021-04-10] VITALS: Ht 162.6 cm; Wt 122.5 kg
[~2021-04-10 11:02] MED LIST changes: +ACETAMINOPHEN325 M1 PO; +ACYCLOVIR 400400 MG PO; +ARTIFICIAL TEA1 EACH OPHTHALMIC; +ASA81BEC PO; +LIPITOR 20 MG T20 M1 PO; +MEDROL DOSPAK21 TA1 PO; +MIRALAX17 GM PO; +REPATHA SU140 MG/1 M INJECTION
[2021-04-10 12:48] LABS: ABSOLUTE NEUTROPHILS 1.3 thou/uL (1.4-8.2); BASOPHILS 1.1 % (0.0-2.0); EOSINOPHILS 5.8 % (0.0-3.0); HEMATOCRIT 42.3 % (37.0-47.0); HEMOGLOBIN 13.8 gm/dL (12.0-15.0); LYMPHOCYTES 44.6 % (24.0-44.0); MCH 29.2 pg (26.0-34.0); MCHC 32.6 g/dL (28.0-37.0); MCV 89.5 fL (80.0-100.0); MONOCYTES 12.3 % (1.0-8.0); PLATELET COUNT 300 thou/uL (150-400); POLYS 36.2 % (36.0-66.0); RBC 4.72 mil/uL (4.20-5.00); RDW 14.1 % (10.5-14.5); WBC 3.5 thou/uL (4.0-11.0)
[2021-04-10 13:02] LABS: CALCIUM 9.1 mg/dL (8.5-10.1); CREATININE 0.7 mg/dL (0.6-1.0); POTASSIUM 4.1 mmol/L (3.5-5.1)
[2021-04-10 13:12] LABS: TOTAL BILIRUBIN 0.4 mg/dL (0.2-1.0); TOTAL PROTEIN 7.7 g/dL (6.4-8.2)
[2021-04-10 13:40] VITALS: BP 160/35
--- NOTE | 2021-04-10 15:15 | EKG ---
[place] [address] [facility] [place] [address] ELECTROCARDIOGRAM REPORT Name: ANA MACIEL EDMUNDO [id number]mission: 04/10/21 Attend Phys: Discharge: 04/10/21 Date of : 47 Report #: [id number] [facility] ED Test Date: 2021-04-10 Test Time: 11:24:36 Pat Name: ANA MACIEL Department: Room: Gender: F Consumer Insight Manager: AJ : 1945 Requested By: Ange Ho Order Number: [id number] MD: Kole Chaudhry Measurements Intervals [place] Rate: 79 P: 36 MN: 179 QRS: -13 QRSD: 93 T: 38 QT: 389 QTc: 447 Interpretive Statements Sinus rhythm Multiple ventricular premature complexes Left atrial enlargement Inferior infarct, old Compared to ECG 07/12/2020 17:20:44 Atrial abnormality now present Myocardial infarct finding still present Electronically Signed On 04-10-2021 15:15:27 PATROL AGENT by Kole Chaudhry [email or web address] <ELECTRONICALLY SIGNED> By: Kole Chaudhry MD, [facility] 04/10/21 1515 [id number] [id number] Kole Chaudhry MD, FAC /EPI
== END 2021-04-10 13:48 | disposition home or self-care (01) ==
LOC: ER 11:02
PROVIDERS: Nurse Practitioner
DX: I10 Essential (primary) hypertension (principal); Z20.822 Contact with and (suspected) exposure to COVID-19; E78.5 Hyperlipidemia, unspecified; E11.9 Type 2 diabetes mellitus without complications; K21.9 Gastro-esophageal reflux disease without esophagitis; J45.909 Unspecified asthma, uncomplicated; F17.210 Nicotine dependence, cigarettes, uncomplicated; Z98.51 Tubal ligation status; Z86.73 Personal history of transient ischemic attack (TIA), and cerebral infarction without residual deficits; Z79.82 Long term (current) use of aspirin; Z79.899 Other long term (current) drug therapy; Z79.891 Long term (current) use of opiate analgesic; Z88.6 Allergy status to analgesic agent; Z88.8 Allergy status to other drugs, medicaments and biological substances